=== PATIENT | female | born 1950 | race African-American/Black ===

== ENCOUNTER 2017-04-09 06:12 | Emergency (ER) | payer MEDICAID, MEDICARE ==
[~2017-04-09] VITALS: Ht 172.7 cm; Wt 136.0 kg
[~2017-04-09 06:12] MED LIST: AMLO10TA80 PO; ASPI-1159 PO; FURO-151 PO; GABA-531 PO; LEVE750T10 PO; METF10002 PO; OXCA300T31 PO; PHEN100C12 PO; RANI150T7 PO; SIMV40TA5 PO
[2017-04-09] MEDS ORDERED: LEVETIRACETAM 500MG PREMIX 100 ML IV ONE (07:15)
[2017-04-09 07:58] LABS: BASOPHILS % 0.8 % (0.0-2.0); EOSINOPHILS % 0.4 % (0.0-5.0); HEMATOCRIT. 36.7 % (36.0-48.0); HEMOGLOBIN. 12.6 g/dL (12.0-16.0); LYMPHOCYTES % 16.8 % (20.0-50.0); MEAN CORPUSCULAR HEMOGLOBIN 32.4 pg (28.0-32.0); MEAN CORPUSCULAR VOLUME 94.7 fL (81.0-99.0); MEAN PLATELET VOLUME 9.2 fl (7.4-10.4); MONOCYTES % 10.7 % (2.0-8.0); NEUTROPHILS % 71.3 % (40.0-76.0); PLATELET 232 x1000/uL (130-400); RED BLOOD CELL COUNT 3.87 mill/uL (4.2-5.4); RED CELL DISTRIBUTION WIDTH 14.6 % (11.6-14.6)
[2017-04-09 08:00] LABS: CHLORIDE 106 mEq/L (98-107)
[2017-04-09 08:02] LABS: INR 1.1; PARTIAL THROMBOPLASTIN TIME 25.8 sec (24.0-34.0); PROTHROMBIN TIME 10.9 sec
[2017-04-09 08:07] LABS: CARBON DIOXIDE 28 mEq/L (21-32)
[2017-04-09 08:08] LABS: ETHANOL BLOOD < 10 mg/dL; PHENYTOIN 4.3 ug/mL (10-20)
[2017-04-09] MEDS ORDERED: PHENYTOIN SODIUM 1,000 MG in SODIUM CHLORIDE 0.9% 100 ML IV ONE (08:30)
[2017-04-09] MEDS ORDERED: ASPIRIN 325MG EC TABLET PO ONE (10:00)
[2017-04-09 17:26] VITALS: BP 147/75
== END 2017-04-09 17:51 | disposition short-term general hospital (02) ==
LOC: ER 06:27 → EDBEDREQ 10:39 → ENRESERV 15:01 → CANRESERV 15:01 → CANBEDREQ 15:41 → ER 17:51
DX: G40.909 Epilepsy, unspecified, not intractable, without status epilepticus (principal); Z79.82 Long term (current) use of aspirin
CPT/HCPCS: 36415; 51702; 70450; 71010; 80053; 80185; 84484; 85025; 85610; 85730; 93005; 96365; 96366; 96367; 99285; G0482; J1165; J1953; Z7610; J7050; A4315

== ENCOUNTER 2022-01-08 17:01 | Inpatient (IN) | payer MEDICARE, MEDICAID ==
[~2022-01-08] VITALS: Ht 167.6 cm; Wt 120.2 kg
[~2022-01-08 17:01] MED LIST changes: -ASPI-1159 PO; +ASPI-1497 PO; +ATOR-2 MT; +CLON-457 PO; +FAMO20TA8 MT; -GABA-531 PO; +GABA-532 PO; +INSU100V3 SUBCUT; +METF-416 PO; -METF10002 PO; +METO25TA6 MT; +NITR0.4T49 SL; -SIMV40TA5 PO; +SPIR25TA6 MT
[2022-01-08] MEDS ORDERED: FUROSEMIDE 100MG/10ML VIAL IVP ONE (19:00)
[2022-01-08 23:59] VITALS: BP 129/57
[2022-01-09 07:02] LABS: CHLORIDE 111 mEq/L (98-107)
[2022-01-09 07:16] LABS: HEMATOCRIT. 35.2 % (36.0-48.0); MEAN CORPUSCULAR HEMOGLOBIN 31.6 pg (28.0-32.0); MEAN CORPUSCULAR VOLUME 92.9 fL (81.0-99.0); MEAN PLATELET VOLUME 10.5 fl (7.4-10.4); PLATELET 182 x1000/uL (130-400); RED BLOOD CELL COUNT 3.79 mill/uL (4.2-5.4); RED CELL DISTRIBUTION WIDTH 14.3 % (11.6-14.6)
[2022-01-09 08:00] VITALS: BP 118/59
[2022-01-09] MEDS ORDERED: ONDANSETRON HCL 4MG/2ML INJ IV PRN (08:45)
[2022-01-09] MEDS ORDERED: FUROSEMIDE 100MG/10ML VIAL IVP SCH (09:00)
[2022-01-09 12:00] VITALS: BP 101/52
[2022-01-09 13:15] LABS: PLATELET ESTIMATE NORMAL
[2022-01-09 16:00] VITALS: BP 130/64
[2022-01-09] MEDS ORDERED: FUROSEMIDE 40MG/4 ML UDC PO SCH (17:00)
[2022-01-09] MEDS: FUROSEMIDE 40MG TABLET PO SCH (17:21)
[2022-01-09] MEDS ORDERED: DEXTROSE 50% WATER 50ML SYRINGE IV PRN (18:00)
[2022-01-09 20:00] VITALS: BP 128/62
[2022-01-09] MEDS: FAMOTIDINE 20MG TABLET PO SCH (20:47)
[2022-01-09] MEDS: ENOXAPARIN 30MG/0.3ML SYR SUBCUT SCH (20:47)
[2022-01-09] MEDS ORDERED: BLOOD SUGAR DIAGNOSTIC STRIP TEST SCH (21:00)
[2022-01-09] MEDS ORDERED: INSULIN LISPRO 100 UNITS/ML SUBCUT SCH (21:00)
[2022-01-10] VITALS: BP 129/68
[2022-01-10 04:00] VITALS: BP 128/62
[2022-01-10] MEDS ORDERED: ATIVAN 1 MG IV PRN (04:15)
[2022-01-10] MEDS ORDERED: LORAZEPAM 2MG/ML CPJ IV PRN (04:15)
[2022-01-10] MEDS: FUROSEMIDE 40MG TABLET PO SCH ×2 (07:15→07:28)
[2022-01-10 08:00] VITALS: BP 122/59
[2022-01-10] MEDS: ENOXAPARIN 30MG/0.3ML SYR SUBCUT SCH ×2 (08:22→20:54)
[2022-01-10] MEDS: METOLAZONE 2.5MG TABLET PO SCH (08:22)
[2022-01-10] MEDS ORDERED: LIDOCAINE HCL 1% 10 MG/ML 10ML VIAL ONE (08:47)
[2022-01-10] MEDS: LEVETIRACETAM 500MG TABLET PO SCH ×2 (08:51→20:55)
[2022-01-10 11:55] VITALS: BP 122/71
[2022-01-10] MEDS: ACETAMINOPHEN 325MG TABLET PO PRN (15:45)
[2022-01-10 16:00] VITALS: BP 101/56
[2022-01-10] MEDS: FUROSEMIDE 100MG/10ML VIAL IVP SCH (17:06)
[2022-01-10 20:30] VITALS: BP 119/59
[2022-01-10] MEDS: FAMOTIDINE 20MG TABLET PO SCH (20:55)
[2022-01-10] MEDS: PHENYTOIN SODIUM EXTENDED 100MG CAPSULE PO SCH (20:55)
[2022-01-11 00:25] VITALS: BP 111/51
[2022-01-11 04:00] VITALS: BP 123/52
[2022-01-11 08:00] VITALS: BP 113/67
[2022-01-11] MEDS: METOLAZONE 2.5MG TABLET PO SCH (08:57)
[2022-01-11] MEDS: LEVETIRACETAM 500MG TABLET PO SCH ×2 (08:57→21:26)
[2022-01-11] MEDS: FUROSEMIDE 100MG/10ML VIAL IVP SCH ×2 (08:57→16:42)
[2022-01-11] MEDS: ENOXAPARIN 30MG/0.3ML SYR SUBCUT SCH ×2 (08:57→21:27)
[2022-01-11] MEDS: ACETAMINOPHEN 325MG TABLET PO PRN (09:46)
[2022-01-11] MEDS: SPIRONOLACTONE 25MG TABLET PO SCH (11:57)
[2022-01-11 12:11] VITALS: BP 126/78
[2022-01-11 16:00] VITALS: BP 104/74
[2022-01-11 20:00] VITALS: BP 108/64
[2022-01-11] MEDS ORDERED: ATORVASTATIN CALCIUM 20MG TABLET PO SCH (21:00)
[2022-01-11] MEDS: PHENYTOIN SODIUM EXTENDED 100MG CAPSULE PO SCH (21:26)
[2022-01-11] MEDS: FAMOTIDINE 20MG TABLET PO SCH (21:27)
[2022-01-12] VITALS: BP 96/57
[2022-01-12 04:00] VITALS: BP 103/48
[2022-01-12 07:35] LABS: CHLORIDE 96 mEq/L (98-107)
[2022-01-12 08:04] VITALS: BP 132/65
[2022-01-12] MEDS ORDERED: POTASSIUM CHLORIDE 20MEQ TABLET SR PO NR (08:15)
[2022-01-12] MEDS: SPIRONOLACTONE 25MG TABLET PO SCH (09:26)
[2022-01-12] MEDS: FUROSEMIDE 100MG/10ML VIAL IVP SCH (09:26)
[2022-01-12] MEDS: LEVETIRACETAM 500MG TABLET PO SCH (09:27)
[2022-01-12] MEDS: METOLAZONE 2.5MG TABLET PO SCH (09:27)
[2022-01-12] MEDS: ENOXAPARIN 30MG/0.3ML SYR SUBCUT SCH (09:28)
[2022-01-12 10:52] VITALS: BP 126/82
[2022-01-12 12:00] VITALS: BP 127/82
== END 2022-01-12 14:55 | disposition home health service (06) | DRG 291 ==
LOC: ER 17:01 → 7EST 20:07 → ENRESERV 21:41
PROVIDERS: ADMIT Internal Medicine; ATTEND Internal Medicine
PROC: 02HV33Z Insertion of Infusion Device into Superior Vena Cava, Percutaneous Approach (ICD-10-PCS; principal; 2022-01-10)
PROC: B548ZZA Ultrasonography of Superior Vena Cava, Guidance (ICD-10-PCS; 2022-01-10)
DX: I11.0 Hypertensive heart disease with heart failure (principal); I50.33 Acute on chronic diastolic (congestive) heart failure; E44.0 Moderate protein-calorie malnutrition; E87.1 Hypo-osmolality and hyponatremia; Z68.41 Body mass index [BMI] 40.0-44.9, adult; E11.9 Type 2 diabetes mellitus without complications; E66.01 Morbid (severe) obesity due to excess calories; G40.909 Epilepsy, unspecified, not intractable, without status epilepticus; E87.8 Other disorders of electrolyte and fluid balance, not elsewhere classified; T50.1X6A Underdosing of loop [high-ceiling] diuretics, initial encounter; Z79.4 Long term (current) use of insulin; Z79.82 Long term (current) use of aspirin; Z79.899 Other long term (current) drug therapy; Z71.3 Dietary counseling and surveillance; Z86.73 Personal history of transient ischemic attack (TIA), and cerebral infarction without residual deficits; Y92.89 Other specified places as the place of occurrence of the external cause
CPT/HCPCS: 36415; 71045; 76937; 80048; 80053; 82962; 83036; 83880; 84484; 85025; 93005; 93306; 93970; 97162; 99285; C1725; C1769; J1650; J1940; J3490

== ENCOUNTER 2022-11-18 18:14 | Inpatient (IN) | payer MEDICARE, MEDICAID ==
[~2022-11-18] VITALS: Ht 170.2 cm; Wt 107.5 kg
[2022-11-18] MEDS ORDERED: HYDROCODONE/ACETAMINOPHEN 5/325MG TABLET PO NR (19:15)
[2022-11-18] MEDS ORDERED: FUROSEMIDE 40MG TABLET PO ONE (19:15)
[2022-11-18 19:55] LABS: BASOPHILS % 0.8 % (0.0-2.0); HEMOGLOBIN. 13.5 g/dL (12.0-16.0); MEAN CORPUSCULAR HEMOGLOBIN 30.7 pg (28.0-32.0); MEAN CORPUSCULAR VOLUME 95.8 fL (81.0-99.0); MEAN PLATELET VOLUME 10.6 fl (7.4-10.4); MONOCYTES % 13.6 % (2.0-8.0); NEUTROPHILS % 54.6 % (40.0-76.0); PLATELET 213 x1000/uL (130-400); RED BLOOD CELL COUNT 4.39 mill/uL (4.2-5.4); RED CELL DISTRIBUTION WIDTH 15.7 % (11.6-14.6)
[2022-11-18 20:01] LABS: CHLORIDE 106 mEq/L (98-107)
[2022-11-19] MEDS ORDERED: LORAZEPAM 2MG/ML CPJ IV PRN (02:00)
[2022-11-19] MEDS ORDERED: IPRATROPIUM/ALBUTEROL 0.5-3(2.5)MG/3ML NEB HHN PRN (02:00)
[2022-11-19] MEDS ORDERED: CLONIDINE 0.1MG TABLET PO PRN (02:00)
[2022-11-19] MEDS ORDERED: ONDANSETRON HCL 4MG/2ML INJ IV PRN (02:00)
[2022-11-19] MEDS ORDERED: ACETAMINOPHEN 325MG TABLET PO PRN ×2 (02:00)
[2022-11-19] MEDS ORDERED: DEXTROSE 50% WATER 50ML SYRINGE IV PRN (02:00)
[2022-11-19] MEDS ORDERED: ALBUTEROL (0.083%) 2.5MG/3ML NEB HHN PRN (03:15)
[2022-11-19] MEDS ORDERED: IPRATROPIUM BROMIDE (0.02%) 0.5MG/2.5ML NEB HHN PRN (03:15)
[2022-11-19 04:00] VITALS: BP 127/55
[2022-11-19] MEDS: BLOOD SUGAR DIAGNOSTIC STRIP TEST SCH ×4 (05:44→21:00)
[2022-11-19 06:49] LABS: PARTIAL THROMBOPLASTIN TIME 22.7 sec (23.4-31.0); PROTHROMBIN TIME 11.1 sec (9.6-11.0)
[2022-11-19 07:26] LABS: CREATINE KINASE 72 IU/L (26-192); CREATINE KINASE MB FRACTION < 1.0 ng/mL (0.5-3.6); PHOSPHORUS 3.1 mg/dL (2.5-4.9); T4 FREE 1.03 ng/dL (0.76-1.46)
[2022-11-19 08:00] VITALS: BP 105/49
[2022-11-19] MEDS: PHENYTOIN SODIUM EXTENDED 100MG CAPSULE PO SCH (09:56)
[2022-11-19] MEDS: SPIRONOLACTONE 25MG TABLET PO SCH (09:56)
[2022-11-19] MEDS: LEVETIRACETAM 500MG TABLET PO SCH ×2 (09:57→17:00)
[2022-11-19] MEDS: FAMOTIDINE 20MG TABLET PO SCH ×2 (09:57→21:38)
[2022-11-19] MEDS: METFORMIN HCL 500MG TABLET PO SCH (09:57)
[2022-11-19] MEDS: ENOXAPARIN 30MG/0.3ML SYR SUBCUT SCH ×2 (09:59→21:38)
[2022-11-19] MEDS: FUROSEMIDE 40MG/4ML VIAL IVP SCH ×2 (10:07→17:40)
[2022-11-19 12:00] VITALS: BP 105/53
[2022-11-19 16:00] VITALS: BP 105/51
[2022-11-19 20:00] VITALS: BP 116/55
[2022-11-19 21:47] LABS: CREATINE KINASE 115 IU/L (26-192); CREATINE KINASE MB FRACTION < 1.0 ng/mL (0.5-3.6)
[2022-11-20 04:00] VITALS: BP 112/56
[2022-11-20] MEDS: BLOOD SUGAR DIAGNOSTIC STRIP TEST SCH ×4 (07:20→21:38)
[2022-11-20 08:00] VITALS: BP 100/50
[2022-11-20] MEDS: METFORMIN HCL 500MG TABLET PO SCH (08:32)
[2022-11-20] MEDS: LEVETIRACETAM 500MG TABLET PO SCH ×2 (08:32→17:16)
[2022-11-20] MEDS: SPIRONOLACTONE 25MG TABLET PO SCH (08:32)
[2022-11-20] MEDS: PHENYTOIN SODIUM EXTENDED 100MG CAPSULE PO SCH (08:33)
[2022-11-20] MEDS: FAMOTIDINE 20MG TABLET PO SCH ×2 (08:33→21:30)
[2022-11-20] MEDS: ENOXAPARIN 30MG/0.3ML SYR SUBCUT SCH ×2 (08:33→21:31)
[2022-11-20] MEDS: FUROSEMIDE 40MG/4ML VIAL IVP SCH ×2 (09:28→17:17)
[2022-11-20 12:00] VITALS: BP 107/56
[2022-11-20] MEDS ORDERED: *PATIENT'S OWN MEDICATION STORAGE XX SCH (15:15)
[2022-11-20 16:00] VITALS: BP 106/52
[2022-11-20 20:00] VITALS: BP 90/50
[2022-11-21] VITALS: BP 105/58
[2022-11-21 04:00] VITALS: BP 115/66
[2022-11-21] MEDS: BLOOD SUGAR DIAGNOSTIC STRIP TEST SCH ×4 (07:34→21:00)
[2022-11-21 08:00] VITALS: BP_SYST 100; BP_SYST 89; BP_DIAS 47; BP_DIAS 54
[2022-11-21] MEDS: PHENYTOIN SODIUM EXTENDED 100MG CAPSULE PO SCH (08:40)
[2022-11-21] MEDS: LEVETIRACETAM 500MG TABLET PO SCH ×2 (08:40→17:20)
[2022-11-21] MEDS: FAMOTIDINE 20MG TABLET PO SCH ×2 (08:42→21:41)
[2022-11-21] MEDS: METFORMIN HCL 500MG TABLET PO SCH (08:42)
[2022-11-21] MEDS: FUROSEMIDE 40MG/4ML VIAL IVP SCH ×2 (08:42→17:20)
[2022-11-21] MEDS: ENOXAPARIN 30MG/0.3ML SYR SUBCUT SCH ×2 (08:43→21:41)
[2022-11-21] MEDS: SPIRONOLACTONE 25MG TABLET PO SCH (08:43)
[2022-11-21] MEDS ORDERED: MAGNESIUM OXIDE 400MG TABLET PO SCH (11:00)
[2022-11-21 12:00] VITALS: BP 102/39
[2022-11-21 16:00] VITALS: BP 112/48
[2022-11-22 08:00] VITALS: BP 103/64
[2022-11-22] MEDS: FUROSEMIDE 40MG/4ML VIAL IVP SCH (09:41)
[2022-11-22] MEDS: ENOXAPARIN 30MG/0.3ML SYR SUBCUT SCH (09:42)
[2022-11-22] MEDS: METFORMIN HCL 500MG TABLET PO SCH (09:42)
[2022-11-22] MEDS: FAMOTIDINE 20MG TABLET PO SCH (09:42)
[2022-11-22] MEDS: LEVETIRACETAM 500MG TABLET PO SCH (09:42)
[2022-11-22] MEDS: SPIRONOLACTONE 25MG TABLET PO SCH (09:45)
[2022-11-22] MEDS: PHENYTOIN SODIUM EXTENDED 100MG CAPSULE PO SCH (09:45)
[2022-11-22 12:00] VITALS: BP 117/74
== END 2022-11-22 16:00 | disposition home health service (06) | DRG 291 ==
LOC: ER 18:14 → 6EST 23:33 → EDBEDREQTM 23:36 → EDBEDREQ 23:36
PROVIDERS: ADMIT Internal Medicine; ATTEND Internal Medicine
DX: I11.0 Hypertensive heart disease with heart failure (principal); I50.33 Acute on chronic diastolic (congestive) heart failure; E11.9 Type 2 diabetes mellitus without complications; G40.909 Epilepsy, unspecified, not intractable, without status epilepticus; J44.9 Chronic obstructive pulmonary disease, unspecified; Z20.822 Contact with and (suspected) exposure to COVID-19; Z79.84 Long term (current) use of oral hypoglycemic drugs; Z86.73 Personal history of transient ischemic attack (TIA), and cerebral infarction without residual deficits
CPT/HCPCS: 36415; 70551; 71045; 80053; 82550; 82553; 82962; 83036; 83735; 84100; 84439; 84443; 84484; 85025; 87426; 93005; 93306; 93970; 97162; 97166; 99285; J1650; J1940

== ENCOUNTER 2022-12-27 15:47 | Inpatient (IN) | payer MEDICARE, MEDICAID ==
[~2022-12-27] VITALS: Ht 172.7 cm; Wt 108.0 kg
[2022-12-27] MEDS ORDERED: FUROSEMIDE 40MG/4ML VIAL IV NR (17:30)
[2022-12-27] MEDS ORDERED: FUROSEMIDE 40MG/4ML VIAL IV ONE (17:30)
[2022-12-27 19:31] LABS: CLARITY URINE CLEAR (CLEAR); COLOR URINE YELLOW (YELLOW); KETONES URINE NEGATIVE (NEGATIVE); LEUKOCYTE ESTERASE URINE NEGATIVE (NEGATIVE); NITRITE URINE NEGATIVE (NEGATIVE); OCCULT BLOOD URINE NEGATIVE (NEGATIVE); PH URINE 6.5 (4.5-8.0); PROTEIN URINE NEGATIVE (NEGATIVE); UROBILINOGEN URINE 0.2 E.U./dL (0.2-1.0)
[2022-12-27 20:01] LABS: BASOPHILS % 0.8 % (0.0-2.0); EOSINOPHILS % 2.6 % (0.0-5.0); HEMATOCRIT. 34.6 % (36.0-48.0); HEMOGLOBIN. 11.3 g/dL (12.0-16.0); LYMPHOCYTES % 33.7 % (20.0-50.0); MEAN CORPUSCULAR HEMOGLOBIN 30.5 pg (28.0-32.0); MEAN CORPUSCULAR VOLUME 93.5 fL (81.0-99.0); MEAN PLATELET VOLUME 9.7 fl (7.4-10.4); MONOCYTES % 13.4 % (2.0-8.0); NEUTROPHILS % 49.5 % (40.0-76.0); PLATELET 251 x1000/uL (130-400); RED CELL DISTRIBUTION WIDTH 15.1 % (11.6-14.6)
[2022-12-27 20:12] LABS: PARTIAL THROMBOPLASTIN TIME 26.4 sec (23.4-31.0); PROTHROMBIN TIME 10.8 sec (9.6-11.0)
[2022-12-27 20:24] LABS: CHLORIDE 109 mEq/L (98-107)
[2022-12-27] MEDS ORDERED: POTASSIUM CHLORIDE 20MEQ TABLET SR PO ONE (20:30)
[2022-12-28] MEDS ORDERED: CLONIDINE 0.1MG TABLET PO PRN (01:45)
[2022-12-28] MEDS ORDERED: DOCUSATE SODIUM 100MG CAPSULE PO PRN (01:45)
[2022-12-28] MEDS ORDERED: ONDANSETRON HCL 4MG/2ML INJ IV PRN (01:45)
[2022-12-28] MEDS ORDERED: GUAIFENESIN 200MG/10ML SUGAR FREE UDC PO PRN (01:45)
[2022-12-28] MEDS ORDERED: IPRATROPIUM/ALBUTEROL 0.5-3(2.5)MG/3ML NEB HHN PRN (01:45)
[2022-12-28] MEDS ORDERED: ACETAMINOPHEN 325MG TABLET PO PRN (01:45)
[2022-12-28] MEDS ORDERED: MAGNESIUM/ALUMINUM HYDROXIDE/SIMETHICONE 30ML UDC PO PRN (01:45)
[2022-12-28] MEDS ORDERED: DEXTROSE 50% WATER 50ML SYRINGE IV PRN (02:00)
[2022-12-28 02:30] VITALS: BP 102/47
[2022-12-28] MEDS: INSULIN LISPRO 100 UNITS/ML SUBCUT SCH ×5 (02:50→20:09)
[2022-12-28] MEDS: FUROSEMIDE 40MG/4ML VIAL IVP SCH ×3 (03:30→17:10)
[2022-12-28 03:52] LABS: *AMPHETAMINES SCREEN URINE NEGATIVE (NEGATIVE); *BARBITURATES SCREEN URINE NEGATIVE (NEGATIVE); *BENZODIAZEPINES SCREEN URINE NEGATIVE (NEGATIVE); *COCAINE SCREEN URINE NEGATIVE (NEGATIVE); CANNABINOID URINE SCREEN NEGATIVE (NEGATIVE); METHADONE URINE SCREEN NEGATIVE (NEGATIVE); OPIATES URINE SCREEN NEGATIVE (NEGATIVE); PHENCYCLIDINE URINE SCREEN NEGATIVE (NEGATIVE)
[2022-12-28 04:00] VITALS: BP 110/61
[2022-12-28 08:00] VITALS: BP 115/68
[2022-12-28] MEDS ORDERED: SPIRONOLACTONE 25MG TABLET PO SCH (09:00)
[2022-12-28] MEDS ORDERED: ENOXAPARIN 40MG/0.4ML SYR SUBCUT SCH (09:00)
[2022-12-28] MEDS: BLOOD SUGAR DIAGNOSTIC STRIP TEST SCH ×4 (09:00→20:09)
[2022-12-28 12:00] VITALS: BP 106/59
[2022-12-28 16:00] VITALS: BP 110/54
[2022-12-28] MEDS: ASPIRIN 81MG EC TABLET PO SCH (16:56)
[2022-12-28] MEDS: SPIRONOLACTONE 25MG TABLET PO SCH (16:57)
[2022-12-28] MEDS: FAMOTIDINE 20MG TABLET PO SCH ×2 (16:57→17:10)
[2022-12-28] MEDS: PHENYTOIN SODIUM EXTENDED 100MG CAPSULE PO SCH ×2 (16:58→17:10)
[2022-12-28] MEDS: OXCARBAZEPINE 300MG TABLET PO SCH ×2 (16:59→17:19)
[2022-12-28] MEDS: ENOXAPARIN 30MG/0.3ML SYR SUBCUT SCH (17:22)
[2022-12-28 18:26] LABS: CREATINE KINASE 61 IU/L (26-192); TOTAL IRON BINDING CAPACITY 369 ug/dL (250-450)
[2022-12-28 18:49] LABS: FOLIC ACID (FOLATE) SERUM 5.5 ng/mL (>5.38)
[2022-12-28 20:00] VITALS: BP 108/59
[2022-12-28] MEDS ORDERED: IPRATROPIUM BROMIDE (0.02%) 0.5MG/2.5ML NEB HHN PRN (21:00)
[2022-12-28] MEDS ORDERED: ALBUTEROL (0.083%) 2.5MG/3ML NEB HHN PRN (21:00)
[2022-12-29] VITALS: BP 110/60
[2022-12-29 04:00] VITALS: BP 122/59
[2022-12-29] MEDS: ENOXAPARIN 30MG/0.3ML SYR SUBCUT SCH ×2 (05:26→19:56)
[2022-12-29] MEDS: BLOOD SUGAR DIAGNOSTIC STRIP TEST SCH ×4 (06:40→21:19)
[2022-12-29 08:00] VITALS: BP 128/57
[2022-12-29] MEDS ORDERED: DEXTROSE 50% WATER 50ML SYRINGE IV PRN (08:45)
[2022-12-29] MEDS: ASPIRIN 81MG EC TABLET PO SCH (10:38)
[2022-12-29] MEDS: FUROSEMIDE 40MG/4ML VIAL IVP SCH ×2 (10:38→19:55)
[2022-12-29] MEDS: OXCARBAZEPINE 300MG TABLET PO SCH ×2 (10:39→19:55)
[2022-12-29] MEDS: FAMOTIDINE 20MG TABLET PO SCH ×2 (10:39→19:55)
[2022-12-29] MEDS: SPIRONOLACTONE 25MG TABLET PO SCH (10:39)
[2022-12-29] MEDS: PHENYTOIN SODIUM EXTENDED 100MG CAPSULE PO SCH ×3 (10:41→19:55)
[2022-12-29] MEDS: ACETAMINOPHEN 325MG TABLET PO PRN (10:51)
[2022-12-29 12:00] VITALS: BP 103/53
[2022-12-29] MEDS: INSULIN LISPRO 100 UNITS/ML SUBCUT SCH ×3 (13:10→21:00)
[2022-12-29 16:00] VITALS: BP 125/65
[2022-12-29 20:00] VITALS: BP 149/78
[2022-12-30] VITALS (10 sets, daily range): BP systolic 103–140; BP diastolic 54–71
[2022-12-30] MEDS: ENOXAPARIN 30MG/0.3ML SYR SUBCUT SCH ×2 (05:30→18:02)
[2022-12-30] MEDS: BLOOD SUGAR DIAGNOSTIC STRIP TEST SCH ×4 (06:42→20:39)
[2022-12-30 07:22] LABS: BASOPHILS % 0.2 % (0.0-2.0); HEMATOCRIT. 35.1 % (36.0-48.0); HEMOGLOBIN. 11.9 g/dL (12.0-16.0); MEAN CORPUSCULAR HEMOGLOBIN 31.3 pg (28.0-32.0); MEAN CORPUSCULAR VOLUME 92.3 fL (81.0-99.0); MEAN PLATELET VOLUME 10.1 fl (7.4-10.4); MONOCYTES % 7.4 % (2.0-8.0); NEUTROPHILS % 83.4 % (40.0-76.0); PLATELET 263 x1000/uL (130-400); RED BLOOD CELL COUNT 3.81 mill/uL (4.2-5.4); RED CELL DISTRIBUTION WIDTH 15.3 % (11.6-14.6)
[2022-12-30] MEDS: PHENYTOIN SODIUM EXTENDED 100MG CAPSULE PO SCH ×3 (08:15→18:01)
[2022-12-30] MEDS: FUROSEMIDE 40MG TABLET PO SCH (08:15)
[2022-12-30] MEDS: OXCARBAZEPINE 300MG TABLET PO SCH ×2 (08:18→18:01)
[2022-12-30] MEDS: SPIRONOLACTONE 25MG TABLET PO SCH (08:18)
[2022-12-30] MEDS: ASPIRIN 81MG EC TABLET PO SCH (08:18)
[2022-12-30] MEDS: FAMOTIDINE 20MG TABLET PO SCH ×2 (08:19→18:01)
[2022-12-30] MEDS: INSULIN LISPRO 100 UNITS/ML SUBCUT SCH ×4 (08:19→20:39)
[2022-12-30 08:31] LABS: CHLORIDE 103 mEq/L (98-107)
[2022-12-30] MEDS ORDERED: LORAZEPAM 2MG/ML CPJ IV PRN (09:45)
[2022-12-30] MEDS ORDERED: LORAZEPAM 2MG/ML CPJ IM PRN (13:10)
[2022-12-30 13:50] LABS: PHOSPHORUS 2.7 mg/dL (2.5-4.9)
[2022-12-30 14:39] LABS: CARBAMAZEPINE < 0.5 ug/mL (4-12)
[2022-12-30] MEDS ORDERED: MAGNESIUM 2 G PREMIX 50 ML IV NR (20:00)
[2022-12-31 00:20] VITALS: BP 110/46
[2022-12-31 04:00] VITALS: BP 117/48
[2022-12-31] MEDS: INSULIN LISPRO 100 UNITS/ML SUBCUT SCH ×4 (05:48→21:00)
[2022-12-31] MEDS: BLOOD SUGAR DIAGNOSTIC STRIP TEST SCH ×4 (05:48→21:34)
[2022-12-31] MEDS: ENOXAPARIN 30MG/0.3ML SYR SUBCUT SCH ×2 (05:50→18:00)
[2022-12-31 08:00] VITALS: BP 99/45
[2022-12-31] MEDS: FAMOTIDINE 20MG TABLET PO SCH ×2 (08:57→16:22)
[2022-12-31] MEDS: ASPIRIN 81MG EC TABLET PO SCH (08:57)
[2022-12-31] MEDS: PHENYTOIN SODIUM EXTENDED 100MG CAPSULE PO SCH ×3 (08:57→17:00)
[2022-12-31] MEDS: OXCARBAZEPINE 300MG TABLET PO SCH ×2 (08:58→16:22)
[2022-12-31] MEDS: SPIRONOLACTONE 25MG TABLET PO SCH (08:58)
[2022-12-31] MEDS: FUROSEMIDE 40MG TABLET PO SCH (08:59)
[2022-12-31] MEDS ORDERED: PHENYTOIN SODIUM 500 MG in SODIUM CHLORIDE 0.9% 50 ML IV NR (10:00)
[2022-12-31 12:00] VITALS: BP 114/46
[2022-12-31 12:36] LABS: CHLORIDE 102 mEq/L (98-107)
[2022-12-31 12:41] LABS: HEMATOCRIT. 34.6 % (36.0-48.0); HEMOGLOBIN. 11.4 g/dL (12.0-16.0); MEAN CORPUSCULAR HEMOGLOBIN 30.7 pg (28.0-32.0); MEAN CORPUSCULAR VOLUME 93.2 fL (81.0-99.0); PLATELET 238 x1000/uL (130-400); RED BLOOD CELL COUNT 3.71 mill/uL (4.2-5.4); RED CELL DISTRIBUTION WIDTH 15.4 % (11.6-14.6)
[2022-12-31 13:11] LABS: PLATELET ESTIMATE NORMAL
[2022-12-31 16:00] VITALS: BP 127/46
[2022-12-31 20:00] VITALS: BP 151/54
[2023-01-01] VITALS: BP 138/65
[2023-01-01] MEDS: ACETAMINOPHEN 325MG TABLET PO PRN (03:16)
[2023-01-01 04:00] VITALS: BP 105/54
[2023-01-01] MEDS: ENOXAPARIN 30MG/0.3ML SYR SUBCUT SCH (05:13)
[2023-01-01] MEDS: BLOOD SUGAR DIAGNOSTIC STRIP TEST SCH ×2 (06:15→12:40)
[2023-01-01] MEDS: INSULIN LISPRO 100 UNITS/ML SUBCUT SCH ×2 (07:14→13:10)
[2023-01-01 08:00] VITALS: BP 148/77
[2023-01-01] MEDS: OXCARBAZEPINE 300MG TABLET PO SCH ×2 (09:17→17:19)
[2023-01-01] MEDS: PHENYTOIN SODIUM EXTENDED 100MG CAPSULE PO SCH ×2 (09:17→17:19)
[2023-01-01] MEDS: FUROSEMIDE 40MG TABLET PO SCH (09:17)
[2023-01-01] MEDS: ASPIRIN 81MG EC TABLET PO SCH (09:17)
[2023-01-01] MEDS: FAMOTIDINE 20MG TABLET PO SCH ×2 (09:18→17:19)
[2023-01-01] MEDS: SPIRONOLACTONE 25MG TABLET PO SCH (09:18)
[2023-01-01 12:00] VITALS: BP 132/76
[2023-01-01 16:00] VITALS: BP 117/62
[2023-01-01] MEDS ORDERED: IPRATROPIUM/ALBUTEROL 0.5-3(2.5)MG/3ML NEB HHN PRN (16:45)
[2023-01-01 17:41] VITALS: BP 132/77
[2023-01-01] MEDS ORDERED: CYANOCOBALAMIN 1000MCG/ML VIAL IM NR (17:45)
== END 2023-01-01 18:15 | DRG 291 ==
LOC: ER 15:47 → 7WST 20:57 → EDBEDREQ 21:14
PROVIDERS: ADMIT Hospitalist; ATTEND Hospitalist
PROC: 02HV33Z Insertion of Infusion Device into Superior Vena Cava, Percutaneous Approach (ICD-10-PCS; principal; 2022-12-30)
PROC: B548ZZA Ultrasonography of Superior Vena Cava, Guidance (ICD-10-PCS; 2022-12-30)
DX: I11.0 Hypertensive heart disease with heart failure (principal); I50.33 Acute on chronic diastolic (congestive) heart failure; E46 Unspecified protein-calorie malnutrition; E87.3 Alkalosis; M94.0 Chondrocostal junction syndrome [Tietze]; E78.9 Disorder of lipoprotein metabolism, unspecified; Z68.30 Body mass index [BMI] 30.0-30.9, adult; Z20.822 Contact with and (suspected) exposure to COVID-19; E78.5 Hyperlipidemia, unspecified; D63.8 Anemia in other chronic diseases classified elsewhere; I70.0 Atherosclerosis of aorta; E87.6 Hypokalemia; E66.9 Obesity, unspecified; E11.9 Type 2 diabetes mellitus without complications; G40.909 Epilepsy, unspecified, not intractable, without status epilepticus; E88.09 Other disorders of plasma-protein metabolism, not elsewhere classified; D64.9 Anemia, unspecified; D72.829 Elevated white blood cell count, unspecified; Z79.899 Other long term (current) drug therapy; Z79.4 Long term (current) use of insulin
CPT/HCPCS: 36415; 36573; 71045; 80048; 80053; 80156; 80185; 80305; 81003; 82550; 82607; 82728; 82746; 82962; 83036; 83540; 83550; 83605; 83735; 83880; 84100; 84145; 84484; 85025; 87426; 92610; 93005; 93970; 97116; 97162; 97166; 97535; 99285; C1725; C1893; C9803; J1165; J1650; J1815; J1940; J2060; J3475

== ENCOUNTER 2023-01-29 05:27 | Emergency (ER) | payer MEDICARE, MEDICAID ==
[~2023-01-29] VITALS: Ht 165.1 cm; Wt 100.0 kg
[~2023-01-29 05:27] MED LIST changes: -GABA-532 PO; -RANI150T7 PO
[2023-01-29] MEDS ORDERED: ACETAMINOPHEN 500MG TABLET PO ONE (06:00)
[2023-01-29 06:37] LABS: HEMATOCRIT. 36.7 % (36.0-48.0); HEMOGLOBIN. 12.3 g/dL (12.0-16.0); MEAN CORPUSCULAR HEMOGLOBIN 31.5 pg (28.0-32.0); MEAN CORPUSCULAR VOLUME 94.1 fL (81.0-99.0); MEAN PLATELET VOLUME 9.3 fl (7.4-10.4); PLATELET 227 x1000/uL (130-400); RED CELL DISTRIBUTION WIDTH 16.6 % (11.6-14.6)
[2023-01-29 06:47] LABS: CHLORIDE 107 mEq/L (98-107)
[2023-01-29 07:26] LABS: PLATELET ESTIMATE NORMAL
[2023-01-29 13:14] VITALS: BP 140/68
== END 2023-01-29 13:15 | disposition home or self-care (01) ==
LOC: ER 05:27
DX: R51.9 Headache, unspecified (principal); E66.01 Morbid (severe) obesity due to excess calories; E11.9 Type 2 diabetes mellitus without complications; I11.0 Hypertensive heart disease with heart failure; I50.9 Heart failure, unspecified; Z68.36 Body mass index [BMI] 36.0-36.9, adult; Z88.6 Allergy status to analgesic agent; Z79.82 Long term (current) use of aspirin; Z86.59 Personal history of other mental and behavioral disorders
CPT/HCPCS: 36415; 80053; 85025; 99283

== ENCOUNTER 2024-09-09 16:32 | Inpatient (IN) | payer MEDICARE, MEDICAID ==
[~2024-09-09] VITALS: Ht 160 cm; Wt 79.8 kg
[~2024-09-09 16:32] MED LIST changes: -CLON-457 PO; +CLON-493 PO
[2024-09-09] MEDS: FUROSEMIDE 40MG/4ML VIAL IV ONE (18:05)
[2024-09-09 20:13] LABS: EOSINOPHILS % 2.4 % (0.0-5.0); HEMATOCRIT. 43.7 % (36.0-48.0); HEMOGLOBIN. 14.4 g/dL (12.0-16.0); LYMPHOCYTES % 23.1 % (20.0-50.0); MEAN CORPUSCULAR HEMOGLOBIN 32.5 pg (28.0-32.0); MEAN CORPUSCULAR HGB CONC 32.9 g/dL (31.0-37.0); MEAN CORPUSCULAR VOLUME 98.6 fL (81.0-99.0); MEAN PLATELET VOLUME 10.6 fl (7.4-10.4); MONOCYTES % 13.8 % (2.0-8.0); NEUTROPHILS % 59.7 % (40.0-76.0); PLATELET 234 x1000/uL (130-400); RED BLOOD CELL COUNT 4.43 mill/uL (4.2-5.4)
[2024-09-09 20:14] LABS: CHLORIDE 106 mEq/L (98-107); SODIUM 142 mEq/L (136-145)
[2024-09-09 20:15] LABS: CARBON DIOXIDE 31 mEq/L (21-32)
[2024-09-09 20:20] LABS: CREATININE 0.7 mg/dL (0.6-1.0); GLUCOSE 109 mg/dL (70-105); UREA NITROGEN BLOOD 18 mg/dL (9-23)
[2024-09-09 20:22] LABS: TROPONIN I HIGH SENSITIVITY 5 ng/L (3.0-34)
[2024-09-09 20:36] LABS: INR 0.9; PARTIAL THROMBOPLASTIN TIME 27.6 sec (23.4-31.0); PROTHROMBIN TIME 10.5 sec (9.6-11.0)
[2024-09-09] MEDS ORDERED: ACETAMINOPHEN 325MG TABLET PO PRN (21:15)
[2024-09-09] MEDS ORDERED: DEXTROSE 50% WATER 50ML SYRINGE IV PRN (21:15)
[2024-09-09] MEDS ORDERED: MAGNESIUM/ALUMINUM HYDROXIDE/SIMETHICONE 30ML UDC PO PRN (21:15)
[2024-09-09] MEDS ORDERED: HYDRALAZINE 20MG/ML VIAL IV PRN (21:15)
[2024-09-09] MEDS ORDERED: CLONIDINE 0.1MG TABLET PO PRN (21:15)
[2024-09-09] MEDS ORDERED: GUAIFENESIN 200MG/10ML SUGAR FREE UDC PO PRN (21:15)
[2024-09-09] MEDS ORDERED: ONDANSETRON HCL 4MG/2ML INJ IV PRN (21:15)
[2024-09-09] MEDS ORDERED: DOCUSATE SODIUM 100MG CAPSULE PO PRN (21:15)
[2024-09-09] MEDS ORDERED: IPRATROPIUM/ALBUTEROL 0.5-3(2.5)MG/3ML NEB HHN PRN (21:15)
[2024-09-09] MEDS: PHENYTOIN SODIUM EXTENDED 100MG CAPSULE PO SCH (22:19)
[2024-09-09] MEDS: GABAPENTIN 300MG CAPSULE PO SCH (22:29)
[2024-09-09 23:16] VITALS: BP 138/76; PULSE 74; RESP 18; TEMP 36.3918; O2SAT 96
[2024-09-10 00:06] VITALS: BP 138/76; PULSE 74; RESP 17; TEMP 36.418
[2024-09-10] MEDS: FUROSEMIDE 40MG/4ML VIAL IV SCH (07:00)
[2024-09-10] MEDS: INSULIN LISPRO 100 UNITS/ML SUBCUT SCH (07:01)
[2024-09-10] MEDS: BLOOD SUGAR DIAGNOSTIC STRIP TEST SCH (07:01)
[2024-09-10 08:00] VITALS: BP 106/50; PULSE 64; RESP 18; TEMP 36.16956; O2SAT 95
[2024-09-10] MEDS: OXCARBAZEPINE 300MG TABLET PO SCH (08:52)
[2024-09-10] MEDS: LEVETIRACETAM 500MG/5ML CUP PO SCH (08:53)
[2024-09-10] MEDS: ACETAMINOPHEN 325MG TABLET PO PRN (08:54)
[2024-09-10] MEDS: AMLODIPINE 10MG TABLET PO SCH (08:55)
[2024-09-10] MEDS: METOPROLOL TARTRATE 25MG TABLET PO SCH (08:56)
[2024-09-10] MEDS: SPIRONOLACTONE 25MG TABLET PO SCH (08:57)
[2024-09-10] MEDS: ASPIRIN 81MG EC TABLET PO SCH (08:57)
[2024-09-10] MEDS: FERROUS SULFATE 325MG TABLET PO SCH (08:57)
[2024-09-10] MEDS ORDERED: ENOXAPARIN 40MG/0.4ML SYR SUBCUT SCH (09:00)
[2024-09-10 12:00] VITALS: BP 115/54; PULSE 66; RESP 18; TEMP 36.22512; O2SAT 93
[2024-09-10 13:17] LABS: HEMATOCRIT. 40.5 % (36.0-48.0); HEMOGLOBIN. 13.1 g/dL (12.0-16.0); MEAN CORPUSCULAR HEMOGLOBIN 32.1 pg (28.0-32.0); MEAN CORPUSCULAR HGB CONC 32.4 g/dL (31.0-37.0); MEAN CORPUSCULAR VOLUME 99.2 fL (81.0-99.0); PLATELET 218 x1000/uL (130-400); RED BLOOD CELL COUNT 4.08 mill/uL (4.2-5.4); RED CELL DISTRIBUTION WIDTH 15.7 % (11.6-14.6); WHITE BLOOD COUNT 5.9 x1000/uL (4.5-11.0)
[2024-09-10 13:28] LABS: CHLORIDE 105 mEq/L (98-107); POTASSIUM 3.4 mEq/L (3.5-5.1); SODIUM 143 mEq/L (136-145)
[2024-09-10 13:29] LABS: CALCIUM 9.4 mg/dL (8.7-10.4); CARBON DIOXIDE 31 mEq/L (21-32)
[2024-09-10 13:30] LABS: DIFFERENTIAL COMMENT 1
[2024-09-10 13:34] LABS: CREATININE 0.6 mg/dL (0.6-1.0); GLUCOSE 93 mg/dL (70-105); TRIGLYCERIDE 77 mg/dL (0-150); UREA NITROGEN BLOOD 12 mg/dL (9-23)
[2024-09-10 13:35] LABS: LDL CHOLESTEROL 78 mg/dL (5-100)
[2024-09-10 13:36] LABS: ALANINE AMINOTRANSFERASE 9 IU/L (10-49); ALBUMIN 3.9 g/dL (3.2-4.8); ASPARTATE AMINOTRANSFERASE 16 IU/L (<34); CHOLESTEROL 177 mg/dL (<200); HDL CHOLESTEROL 69 mg/dL (>65)
[2024-09-10 13:37] LABS: BILIRUBIN TOTAL 0.3 mg/dL (0.1-1.0); PROTEIN TOTAL 6.4 g/dL (6.0-8.3)
[2024-09-10 13:38] LABS: T4 FREE 1.26 ng/dL (0.89-1.76); THYROID STIMULATING HORMONE 0.78 uIU/mL (0.55-4.78)
[2024-09-10 13:53] LABS: BILIRUBIN DIRECT < 0.1 mg/dL (<=3.0); TROPONIN I HIGH SENSITIVITY < 4 ng/L (3.0-34)
[2024-09-10 14:18] LABS: PLATELET ESTIMATE NORMAL
[2024-09-10 16:00] VITALS: BP 109/58; PULSE 75; RESP 18; TEMP 36.78072; O2SAT 95
[2024-09-10 20:00] VITALS: BP 120/67; PULSE 69; RESP 18; TEMP 36.78072; O2SAT 97
[2024-09-10] MEDS: FAMOTIDINE 20MG TABLET PO SCH (20:23)
[2024-09-10] MEDS: ATORVASTATIN CALCIUM 40MG TABLET PO SCH (21:02)
[2024-09-11] VITALS: BP 112/53; PULSE 60; RESP 16; TEMP 36.28068; O2SAT 98
[2024-09-11 04:00] VITALS: BP 130/74; PULSE 60; RESP 18; TEMP 36.28068; O2SAT 98
[2024-09-11 08:00] VITALS: BP 119/70; PULSE 96; RESP 16; TEMP 35.94732; O2SAT 98
[2024-09-11 16:00] VITALS: BP 112/49; PULSE 57; RESP 16; TEMP 35.94732; O2SAT 98
[2024-09-11 20:00] VITALS: BP 100/48; PULSE 64; RESP 17; TEMP 36.22512; O2SAT 64
[2024-09-11 20:45] VITALS: BP 100/48; PULSE 64; RESP 18; TEMP 36.2512
[2024-09-12] VITALS: BP 163/64; PULSE 68; RESP 18; TEMP 36.05844; O2SAT 98
[2024-09-12 04:00] VITALS: BP 102/51; PULSE 71; RESP 17; TEMP 36.44736; O2SAT 96
[2024-09-12 11:37] VITALS: BP 128/59; PULSE 65; RESP 19; TEMP 36.22512; O2SAT 97
[2024-09-12 12:00] VITALS: BP 122/56; PULSE 66; RESP 18; TEMP 36.3918; O2SAT 97
[2024-09-12 12:53] VITALS: BP 122/56; PULSE 66; TEMP 97.5; O2SAT 97
[2024-09-12 16:00] VITALS: BP 107/54; PULSE 64; RESP 19; TEMP 36.44736; O2SAT 99
== END 2024-09-12 21:56 | disposition home or self-care (01) | DRG 291 ==
LOC: ER 16:32 → EDBEDREQ 17:03 → 5WST 20:19 → EDBEDREQTM 20:22 → EDBEDREQ 20:22 → 6WST 09-11 20:04
PROVIDERS: ADMIT Hospitalist; ATTEND Hospitalist
DX: I11.0 Hypertensive heart disease with heart failure (principal); I50.33 Acute on chronic diastolic (congestive) heart failure; G40.909 Epilepsy, unspecified, not intractable, without status epilepticus; F17.200 Nicotine dependence, unspecified, uncomplicated; E11.9 Type 2 diabetes mellitus without complications; E78.5 Hyperlipidemia, unspecified; K21.9 Gastro-esophageal reflux disease without esophagitis; Z91.199 Patient's noncompliance with other medical treatment and regimen due to unspecified reason; Z91.148 Patient's other noncompliance with medication regimen for other reason
CPT/HCPCS: 36415; 71045; 80048; 80061; 80076; 82962; 83880; 84439; 84443; 84484; 85025; 93005; 93306; 93970; 97162; 97166; 99285; J1940

== ENCOUNTER 2025-02-03 09:54 | Inpatient (IN) | payer MEDICARE, MEDICAID ==
[~2025-02-03] VITALS: Ht 170.2 cm; Wt 54.5 kg
[2025-02-03 11:39] LABS: BASOPHILS % 0.7 % (0.0-2.0); DIFFERENTIAL COMMENT 0; EOSINOPHILS % 0.1 % (0.0-5.0); HEMOGLOBIN. 13.3 g/dL (12.0-16.0); LYMPHOCYTES % 15.2 % (20.0-50.0); MEAN CORPUSCULAR HEMOGLOBIN 32.7 pg (28.0-32.0); MEAN CORPUSCULAR HGB CONC 33.3 g/dL (31.0-37.0); MEAN CORPUSCULAR VOLUME 98.2 fL (81.0-99.0); MONOCYTES % 10.2 % (2.0-8.0); NEUTROPHILS % 73.8 % (40.0-76.0); PLATELET 224 x1000/uL (130-400); RED BLOOD CELL COUNT 4.07 mill/uL (4.2-5.4); WHITE BLOOD COUNT 7.6 x1000/uL (4.5-11.0)
[2025-02-03 11:49] LABS: CLARITY URINE CLEAR (CLEAR); COLOR URINE YELLOW (YELLOW); GLUCOSE URINE NEGATIVE (NEGATIVE); KETONES URINE NEGATIVE (NEGATIVE); LEUKOCYTE ESTERASE URINE NEGATIVE (NEGATIVE); NITRITE URINE NEGATIVE (NEGATIVE); OCCULT BLOOD URINE NEGATIVE (NEGATIVE); PROTEIN URINE 1+ (NEGATIVE); SPECIFIC GRAVITY URINE 1.021 (1.005-1.030)
[2025-02-03 11:49] LABS: CHLORIDE 101 mEq/L (98-107); POTASSIUM 3.4 mEq/L (3.5-5.1); SODIUM 140 mEq/L (136-145)
[2025-02-03 11:50] LABS: CARBON DIOXIDE 31 mEq/L (21-32)
[2025-02-03 11:55] LABS: CREATININE 0.6 mg/dL (0.6-1.0); GLUCOSE 132 mg/dL (70-105); UREA NITROGEN BLOOD 9 mg/dL (9-23)
[2025-02-03 11:56] LABS: ETHANOL BLOOD < 10 mg/dL (<10)
[2025-02-03 12:00] LABS: BACTERIA URINE 1+; RBC URINE 0-2 /hpf (0-2); SQUAMOUS EPITHELIAL CELL URINE 2+ /lpf (RARE/1+); WBC URINE 0-2 /hpf (0-2); YEAST URINE NONE SEEN
[2025-02-03 12:07] LABS: *AMPHETAMINES SCREEN URINE NEGATIVE (NEGATIVE); *BARBITURATES SCREEN URINE NEGATIVE (NEGATIVE); *BENZODIAZEPINES SCREEN URINE NEGATIVE (NEGATIVE); *COCAINE SCREEN URINE NEGATIVE (NEGATIVE); CANNABINOID URINE SCREEN NEGATIVE (NEGATIVE); ECSTASY MDMA SCREEN URINE NEGATIVE (NEGATIVE); METHADONE URINE SCREEN NEGATIVE (NEGATIVE); OPIATES URINE SCREEN PRESUMPTIVE POSITIVE (NEGATIVE); PHENCYCLIDINE URINE SCREEN NEGATIVE (NEGATIVE)
[2025-02-03] MEDS: LEVETIRACETAM 1000MG PREMIX 100 ML IV ONE (12:49)
[2025-02-03] MEDS ORDERED: GUAIFENESIN 200MG/10ML SUGAR FREE UDC PO PRN (15:00)
[2025-02-03] MEDS ORDERED: SODIUM CHLORIDE 0.9% 1,000 ML IV SCH (15:00)
[2025-02-03] MEDS ORDERED: DEXTROSE 50% WATER 50ML SYRINGE IV PRN (15:00)
[2025-02-03] MEDS ORDERED: HYDROCODONE/ACETAMINOPHEN 5/325MG TABLET PO PRN (15:00)
[2025-02-03] MEDS ORDERED: MAGNESIUM/ALUMINUM HYDROXIDE/SIMETHICONE 30ML UDC PO PRN (15:00)
[2025-02-03] MEDS ORDERED: NA PHOS,M-B/NA PHOS,DI-BA ENEMA 118ML PR PRN (15:00)
[2025-02-03] MEDS ORDERED: IPRATROPIUM/ALBUTEROL 0.5-3(2.5)MG/3ML NEB HHN PRN (15:00)
[2025-02-03] MEDS ORDERED: ONDANSETRON HCL 4MG/2ML INJ IV PRN (15:00)
[2025-02-03] MEDS ORDERED: LORAZEPAM 2MG/ML UD SYRINGE IV PRN (15:00)
[2025-02-03] MEDS ORDERED: ACETAMINOPHEN 325MG TABLET PO PRN (15:00)
[2025-02-03] MEDS ORDERED: DOCUSATE SODIUM 100MG CAPSULE PO PRN (15:00)
[2025-02-03] MEDS: PHENYTOIN SODIUM EXTENDED 100MG CAPSULE PO SCH (16:21)
[2025-02-03] MEDS ORDERED: POTASSIUM CHLORIDE 20MEQ/PACKET PO ONE (16:30)
[2025-02-03] MEDS: OXCARBAZEPINE 300MG TABLET PO SCH (16:36)
[2025-02-03 17:03] LABS: PHOSPHORUS 2.3 mg/dL (2.5-4.9)
[2025-02-03 18:30] VITALS: BP 129/59; PULSE 71; RESP 18; TEMP 36.8
[2025-02-03] MEDS ORDERED: NALOXONE HCL 0.4MG/ML VIAL IV PRN (19:00)
[2025-02-03 20:00] VITALS: BP 138/59; PULSE 70; RESP 17; TEMP 36.7; O2SAT 95
[2025-02-03] MEDS ORDERED: LEVETIRACETAM 500MG/5ML CUP PO SCH (21:00)
[2025-02-03] MEDS: INSULIN LISPRO 100 UNITS/ML SUBCUT SCH (21:00)
[2025-02-03] MEDS: POTASSIUM CHLORIDE 20MEQ/PACKET PO NR (21:37)
[2025-02-03] MEDS: LEVETIRACETAM 500MG/5ML CUP PO SCH (21:37)
[2025-02-03] MEDS: FUROSEMIDE 40MG/4ML VIAL IVP NR (21:38)
[2025-02-03] MEDS: PANTOPRAZOLE SODIUM 40 MG/VIAL IV SCH (21:38)
[2025-02-03] MEDS: METOPROLOL TARTRATE 25MG TABLET PO SCH (21:39)
[2025-02-03] MEDS: ATORVASTATIN CALCIUM 40MG TABLET PO SCH (21:39)
[2025-02-03] MEDS: MAGNESIUM 4 G PREMIX 100 ML IV NR (21:40)
[2025-02-03] MEDS: GABAPENTIN 300MG CAPSULE PO SCH (21:40)
[2025-02-03] MEDS: SPIRONOLACTONE 25MG TABLET PO SCH (21:40)
[2025-02-03] MEDS: BLOOD SUGAR DIAGNOSTIC STRIP TEST SCH (21:41)
[2025-02-03] MEDS: POTASSIUM PHOSPHATE 20 MMOL in DEXT 5% WATER 243.3333 ML IV NR (22:59)
[2025-02-03] MEDS: CEFAZOLIN 1000MG PREMIX 50 ML IV SCH (23:49)
[2025-02-04] VITALS: BP 120/55; PULSE 68; RESP 20; TEMP 36.4; O2SAT 95
[2025-02-04 04:00] VITALS: BP 113/65; PULSE 72; RESP 19; TEMP 36.4; O2SAT 98
[2025-02-04 08:00] VITALS: BP 138/86; PULSE 68; RESP 18; TEMP 36.7; O2SAT 95
[2025-02-04] MEDS: AMLODIPINE 10MG TABLET PO SCH (09:00)
[2025-02-04] MEDS ORDERED: SPIRONOLACTONE 25MG TABLET PO SCH (09:00)
[2025-02-04] MEDS ORDERED: ASPIRIN 81MG TABLET PO SCH (09:00)
[2025-02-04] MEDS: FUROSEMIDE 40MG/4ML VIAL IVP SCH (09:03)
[2025-02-04] MEDS: ASPIRIN 81MG EC TABLET PO SCH (09:05)
[2025-02-04] MEDS: ENOXAPARIN 40MG/0.4ML SYR SUBCUT SCH (09:32)
[2025-02-04 12:00] VITALS: BP 107/56; PULSE 69; RESP 22; TEMP 36.2; O2SAT 98
[2025-02-04 16:00] VITALS: BP 110/51; PULSE 72; RESP 20; TEMP 36.6; O2SAT 100
[2025-02-04 17:31] LABS: HEMATOCRIT. 39.4 % (36.0-48.0); HEMOGLOBIN. 12.8 g/dL (12.0-16.0); MEAN CORPUSCULAR HEMOGLOBIN 32.2 pg (28.0-32.0); MEAN CORPUSCULAR HGB CONC 32.6 g/dL (31.0-37.0); MEAN CORPUSCULAR VOLUME 98.7 fL (81.0-99.0); MEAN PLATELET VOLUME 9.9 fl (7.4-10.4); PLATELET 223 x1000/uL (130-400); RED BLOOD CELL COUNT 3.99 mill/uL (4.2-5.4); RED CELL DISTRIBUTION WIDTH 14.6 % (11.6-14.6); WHITE BLOOD COUNT 7.6 x1000/uL (4.5-11.0)
[2025-02-04 17:37] LABS: DIFFERENTIAL COMMENT 1
[2025-02-04 17:52] LABS: CARBON DIOXIDE 30 mEq/L (21-32); CHLORIDE 101 mEq/L (98-107); POTASSIUM 3.8 mEq/L (3.5-5.1); SODIUM 138 mEq/L (136-145)
[2025-02-04 17:53] LABS: CALCIUM 8.7 mg/dL (8.7-10.4); PLATELET ESTIMATE NORMAL
[2025-02-04 17:58] LABS: ALANINE AMINOTRANSFERASE 10 IU/L (10-49); ASPARTATE AMINOTRANSFERASE 17 IU/L (<34); CREATININE 0.6 mg/dL (0.6-1.0); GLUCOSE 104 mg/dL (70-105); TRIGLYCERIDE 71 mg/dL (0-150); UREA NITROGEN BLOOD 8 mg/dL (9-23)
[2025-02-04 17:59] LABS: ALBUMIN 3.7 g/dL (3.2-4.8); BILIRUBIN DIRECT < 0.1 mg/dL (<=3.0); BILIRUBIN TOTAL 0.3 mg/dL (0.1-1.0); LDL CHOLESTEROL 54 mg/dL (5-100); PROTEIN TOTAL 6.4 g/dL (6.0-8.3)
[2025-02-04 18:00] LABS: CHOLESTEROL 137 mg/dL (<200); CREATINE KINASE 55 IU/L (34-145); HDL CHOLESTEROL 58 mg/dL (>65)
[2025-02-04 18:01] LABS: TROPONIN I HIGH SENSITIVITY < 4 ng/L (3.0-34)
[2025-02-04 18:02] LABS: T4 FREE 1.18 ng/dL (0.89-1.76); THYROID STIMULATING HORMONE 0.44 uIU/mL (0.55-4.78)
[2025-02-04 19:53] VITALS: BP 131/61; PULSE 84; RESP 18; TEMP 36.4; O2SAT 95
[2025-02-05] VITALS: BP 109/61; PULSE 72; RESP 18; TEMP 36.6; O2SAT 98
[2025-02-05 04:00] VITALS: BP 111/60; PULSE 70; RESP 18; TEMP 36.4; O2SAT 96
[2025-02-05 08:00] VITALS: BP 101/52; PULSE 62; RESP 20; TEMP 36.7; O2SAT 98
[2025-02-05 12:00] VITALS: BP 98/49; PULSE 68; RESP 18; TEMP 37; O2SAT 97
[2025-02-05 16:00] VITALS: BP 118/60; PULSE 66; RESP 18; TEMP 36.9; O2SAT 97
[2025-02-05] MEDS ORDERED: FUROSEMIDE 40MG TABLET PO SCH (17:15)
[2025-02-05 20:00] VITALS: BP 107/47; PULSE 72; RESP 18; TEMP 36.4; O2SAT 96
[2025-02-05 23:57] LABS: HEMATOCRIT. 39.8 % (36.0-48.0); HEMOGLOBIN. 13.3 g/dL (12.0-16.0); MEAN CORPUSCULAR HEMOGLOBIN 32.6 pg (28.0-32.0); MEAN CORPUSCULAR HGB CONC 33.3 g/dL (31.0-37.0); MEAN CORPUSCULAR VOLUME 97.9 fL (81.0-99.0); MEAN PLATELET VOLUME 9.7 fl (7.4-10.4); PLATELET 242 x1000/uL (130-400); RED BLOOD CELL COUNT 4.07 mill/uL (4.2-5.4); RED CELL DISTRIBUTION WIDTH 14.4 % (11.6-14.6); WHITE BLOOD COUNT 6.4 x1000/uL (4.5-11.0)
[2025-02-06] VITALS (7 sets, daily range): BP systolic 90–144; BP diastolic 47–69; PULSE 59–70; RESP 16–20; TEMP 36.2–36.7; O2SAT 95–100
[2025-02-06 00:02] LABS: CALCIUM 9.1 mg/dL (8.7-10.4); CARBON DIOXIDE 31 mEq/L (21-32); CHLORIDE 105 mEq/L (98-107); POTASSIUM 3.8 mEq/L (3.5-5.1); SODIUM 142 mEq/L (136-145)
[2025-02-06 00:07] LABS: CREATININE 0.7 mg/dL (0.6-1.0); DIFFERENTIAL COMMENT 1; GLUCOSE 108 mg/dL (70-105)
[2025-02-06 00:08] LABS: PHENYTOIN 6.4 ug/mL (10-20); UREA NITROGEN BLOOD 9 mg/dL (9-23)
[2025-02-06 00:09] LABS: ALANINE AMINOTRANSFERASE 8 IU/L (10-49); ALBUMIN 3.8 g/dL (3.2-4.8); ASPARTATE AMINOTRANSFERASE 16 IU/L (<34); BILIRUBIN DIRECT < 0.1 mg/dL (<=3.0)
[2025-02-06 00:10] LABS: BILIRUBIN TOTAL 0.2 mg/dL (0.1-1.0); PHOSPHORUS 2.9 mg/dL (2.5-4.9); PROTEIN TOTAL 6.6 g/dL (6.0-8.3)
[2025-02-06 00:11] LABS: VITAMIN B12 SERUM 651 pg/mL (211-911)
[2025-02-06] MEDS: FAMOTIDINE 20MG/2ML VIAL IV SCH (08:36)
[2025-02-06 13:23] LABS: OVALOCYTES 1+; PLATELET ESTIMATE NORMAL
[2025-02-06] MEDS ORDERED: OXCA300T4 PO (14:09)
[2025-02-06] MEDS ORDERED: SULF1TAB48 MT (14:09)
[2025-02-06] MEDS ORDERED: PHEN100C4 PO (14:09)
[2025-02-06] MEDS ORDERED: KEPPSOL PO (14:09)
[2025-02-06] MEDS: ACETAMINOPHEN 325MG TABLET PO PRN (22:15)
[2025-02-07] VITALS: BP 118/56; PULSE 62; RESP 18; TEMP 37.2; O2SAT 98
[2025-02-07] MEDS: NITROGLYCERIN 0.4MG TABLET SL SL PRN (00:54)
[2025-02-07 02:30] LABS: TROPONIN I HIGH SENSITIVITY < 4 ng/L (3.0-34)
[2025-02-07 04:00] VITALS: BP 108/37; PULSE 58; RESP 20; TEMP 36.8; O2SAT 97
[2025-02-07 08:05] VITALS: BP 123/60; PULSE 56; RESP 18; TEMP 36.4; O2SAT 97
[2025-02-07 09:00] VITALS: PULSE 56
== END 2025-02-07 09:30 | disposition home or self-care (01) | DRG 100 ==
LOC: ER 09:54 → EDBEDREQ 13:33 → 7WST 17:04
PROVIDERS: ADMIT Hospitalist; ATTEND Hospitalist
PROC: 4A10X4Z Monitoring of Central Nervous Electrical Activity, External Approach (ICD-10-PCS; principal; 2025-02-05)
DX: G40.909 Epilepsy, unspecified, not intractable, without status epilepticus (principal); I50.33 Acute on chronic diastolic (congestive) heart failure; Z68.1 Body mass index [BMI] 19.9 or less, adult; L03.116 Cellulitis of left lower limb; L03.115 Cellulitis of right lower limb; E87.6 Hypokalemia; E66.9 Obesity, unspecified; I11.0 Hypertensive heart disease with heart failure; E78.5 Hyperlipidemia, unspecified; K21.9 Gastro-esophageal reflux disease without esophagitis; E83.42 Hypomagnesemia; E83.39 Other disorders of phosphorus metabolism; I89.0 Lymphedema, not elsewhere classified; M79.89 Other specified soft tissue disorders; Z79.84 Long term (current) use of oral hypoglycemic drugs; Z91.148 Patient's other noncompliance with medication regimen for other reason; Z79.899 Other long term (current) drug therapy
CPT/HCPCS: 36415; 71045; 80048; 80061; 80076; 80185; 80305; 80320; 81003; 82040; 82550; 82607; 82962; 83036; 83735; 83880; 84100; 84145; 84439; 84443; 84484; 85025; 93005; 93970; 95816; 96365; 97162; 97166; 97535; 99285; J0690; J1650; J1815; J1940; J1953; J2470; J3475; J3490; J7060; G0480